=== PATIENT | female | born 1960 | race African-American/Black ===

== ENCOUNTER 2018-03-30 13:08 | Emergency (ER) | payer MEDICAID ==
[~2018-03-30] VITALS: Ht 157.5 cm; Wt 75.0 kg
[~2018-03-30 13:08] MED LIST: ACET160S2 GT; ASPI-1079 GT; ATOR-2 GT; BACL-141 GT; CLOP75TA33 GT; ESCI5SOL2 GT; HAL5 GT; LOSA50TA20 PO; MOM GT; ZINC50TA4 PO
[2018-03-30 14:24] VITALS: BP 129/77
== END 2018-03-30 15:10 | disposition home or self-care (01) ==
LOC: ER 13:08
DX: K94.23 Gastrostomy malfunction (principal); Y84.8 Other medical procedures as the cause of abnormal reaction of the patient, or of later complication, without mention of misadventure at the time of the procedure; Y92.098 Other place in other non-institutional residence as the place of occurrence of the external cause; I69.30 Unspecified sequelae of cerebral infarction
CPT/HCPCS: 43760; 99284